=== PATIENT | male | born 1970 | race Caucasian/White ===

== ENCOUNTER 2021-04-22 13:40 | Emergency (ER) | payer MEDICAID ==
[~2021-04-22] VITALS: Ht 170.2 cm; Wt 96.4 kg
[2021-04-22] MEDS ORDERED: methylPREDNISolone sod succ 125mg/2ml vial IV ONE (14:50)
[2021-04-22] MEDS ORDERED: normal saline 1000ml 1,000 ML IV ONE (14:50)
[2021-04-22] MEDS ORDERED: famotidine/PF 10 mg/ml inj IV ONE (14:50)
--- NOTE | 2021-04-22 15:30 | NUR ---
Just after placing IV, pt complained of feeling lightheaded and nauseous, stating that he has a "phobia" of needles and this is a normal reaction for him.
[2021-04-22] MEDS ORDERED: FAMO40TA73 PO (16:24)
[2021-04-22] MEDS ORDERED: PRED20TA PO (16:24)
[2021-04-22 16:41] VITALS: BP 95/69
== END 2021-04-22 16:42 | disposition home or self-care (01) ==
LOC: ER 13:41
DX: T78.3XXA Angioneurotic edema, initial encounter (principal); R22.0 Localized swelling, mass and lump, head; R53.83 Other fatigue; I50.9 Heart failure, unspecified; Z72.89 Other problems related to lifestyle; Z88.5 Allergy status to narcotic agent; X58.XXXA Exposure to other specified factors, initial encounter; Y93.89 Activity, other specified; Y92.89 Other specified places as the place of occurrence of the external cause; Y99.8 Other external cause status
CPT/HCPCS: 96361; 96374; 96375; 99284; J2930; J3490; J7030